=== PATIENT | male | born 1960 | race Caucasian/White ===

== ENCOUNTER → 2016-10-08 | Outpatient (CLI) | payer BC ==
[~2016-10-08] MED LIST: ASPI-484 PO; OMEP40CA6 PO; [UNRECOGNIZED DRUG - CODE] PO
--- NOTE | 2016-10-08 11:40 | DIREP ---
PROCEDURE:MRI JOINT LOWER EXTREMITY-RT W/O COMPARISON:None. INDICATIONS:LATERAL MENISCAL TEAR W/CYST TECHNIQUE:A complete multi-planar MRI was performed. FINDINGS: PATELLOFEMORAL: Tiny full-thickness cartilage fissuring with minimal subchondral edema along the inferior medial trochlear surface best seen on image 12 series 401. The remainder of the patellofemoral hyaline cartilage appears intact. The extensor mechanism and patellofemoral ligaments appear normal. CRUCIATE LIGAMENTS: Normal. COLLATERAL LIGAMENTS: Normal. MENISCI: No evidence for meniscal tearing. The lateral meniscus specifically appears normal and does not appear to communicate with a cyst adjacent to the lateral femorotibial compartment. MEDIAL COMPARTMENT: Normal hyaline cartilage. LATERAL COMPARTMENT : Small focal cartilage fissure involving the posterior weight-bearing surface of the lateral tibial plateau without adjacent subchondral edema. BONES: Normal. OTHER: There is a lobulated cystic structure lateral to the lateral femoral tibial compartment measuring 3.3 x 1.7 x 3.1 cm. This lies superficial to the fibular collateral ligament and does not appear to communicate with the lateral meniscus. This probably represents synovial or ganglion cyst. Mild prepatellar soft tissue edema. CONCLUSION: 1. Tiny full-thickness cartilage fissure along the inferior medial trochlear surface and small focal cartilage fissure involving the posterior weight-bearing surface of the lateral tibial plateau without adjacent subchondral edema. 2. Multilobulated cystic structure superficial to the fibular collateral ligament adjacent to the lateral joint compartment measuring 3.3 x 1.7 x 3.1 cm probably represents a synovial or ganglion cyst. 3. No evidence for meniscal tear. 4. Mild prepatellar soft tissue edema. Dictated by: Nino Lawrence MD on 10/08/2016 at 11:32 AM
== END | disposition home or self-care (01) ==
LOC: MRI 09:11
PROVIDERS: ATTEND Orthopaedic Surgery
DX: M94.8X6 Other specified disorders of cartilage, lower leg (principal); R60.0 Localized edema
CPT/HCPCS: 73721

== ENCOUNTER 2016-10-13 00:29 | Day surgery (SDC) | payer BC ==
[~2016-10-13] VITALS: Ht 175.3 cm; Wt 115.7 kg
[2016-10-13] VITALS (10 sets, daily range): BP systolic 109–138; BP diastolic 52–86
[2016-10-13] MEDS: LACTATED RINGERS 1,000 ML IV SCH ×2 (08:30→13:22)
[2016-10-13] MEDS ORDERED: XYLOCAINE ONE (10:30)
[2016-10-13] MEDS ORDERED: DECADRON ONE (10:30)
[2016-10-13] MEDS ORDERED: ROBINUL ONE (10:31)
[2016-10-13] MEDS ORDERED: TORADOL ONE (10:31)
[2016-10-13] MEDS ORDERED: ZEMURON IV ONE (10:31)
[2016-10-13] MEDS ORDERED: NEOSTIGMINE ONE (10:31)
[2016-10-13] MEDS ORDERED: ZOFRAN ONE (10:31)
[2016-10-13] MEDS ORDERED: VERSED ONE (10:32)
[2016-10-13] MEDS ORDERED: SUBLIMAZE ONE ×2 (10:32→12:31)
[2016-10-13] MEDS ORDERED: DIPRIVAN IV ONE (10:32)
[2016-10-13] MEDS ORDERED: SODIUM CHLORIDE IR ONE ×2 (10:52)
[2016-10-13] MEDS ORDERED: SENSORCAINE-EPI 0.25%-0.0005 ONE (10:52)
[2016-10-13] MEDS ORDERED: ZOFRAN IV PRN (13:30)
[2016-10-13] MEDS ORDERED: BENADRYL IV PRN (13:30)
[2016-10-13] MEDS ORDERED: SUBLIMAZE IV PRN (13:30)
[2016-10-13] MEDS ORDERED: VENTOLIN IH PRN (13:30)
[2016-10-13] MEDS ORDERED: TRAM50TA PO (13:39)
[2016-10-13] MEDS ORDERED: NORCO 5 MG PO ONE ×2 (13:49→14:32)
[2016-10-13] MEDS ORDERED: NORCO 5 MG PO PRN ×2 (14:00→15:00)
--- NOTE | 2016-10-13 14:03 | OPH ---
DATE OF SURGERY: 10/13/2016 PREOPERATIVE DIAGNOSES: 1. Ganglion cyst, right knee. 2. OA, right knee. POSTOPERATIVE DIAGNOSES: 1. Ganglion cyst, right knee. 2. OA, right knee involving the patellofemoral joint as well as the medial femoral condyle. 3. Plica syndrome, right knee. OPERATIVE PROCEDURES: Arthroscopy of the right knee with: 1. Plica resection. 2. Chondroplasty of the medial femoral condyle as well as the patellofemoral joint. 3. Through a separate incision is an excision of ganglion cyst, right knee. SURGEON: Conor Leonard MD ANESTHESIA: LMA. TOURNIQUET TIME: 46 minutes at 300 mmHg. DRAINS: None. BLOOD LOSS: 10 mL. DESCRIPTION OF INDICATIONS: The patient is a 56-year-old male who has had problems with the right knee. He has had problems intermittently for about the last 6 months. He has had episodes of painful locking and catching. He also complained of a painful mass about the lateral aspect of the knee as well as numbness about the lateral lower leg. He on exam has a very obvious cystic mass that is about 2 x 2 cm over the lateral joint line. There is a negative Tinel sign over the peroneal nerve. The knee itself goes through a full range of motion. His medial and lateral collateral ligaments are intact. The patient has tenderness about the medial and lateral joint line with mild crepitation. The x-rays were negative. The patient's MRI scan showed a ganglion cyst about the lateral aspect of the knee, no obvious meniscal tears, did have some arthritic changes about the patellofemoral joint. This patient was having significant pain about the cystic mass and wanted to have it excised as opposed to aspirate it. The patient was also having enough locking and catching that was painful. We wanted to proceed with arthroscopy. DESCRIPTION OF PROCEDURE: The patient was placed on the operating table in the supine position. LMA anesthetic was induced without difficulty. The patient had a well-padded tourniquet placed around the right thigh. The right lower extremity was then sterilely prepped and draped. The patient had the leg exsanguinated with an Esmarch and then the tourniquet was inflated to 300 mmHg with a good bounce. Arthroscope was introduced anterolaterally, the probe was anteromedial and the outflow cannula was superolateral. The suprapatellar pouch showed no loose bodies. He had a very large prominent plica about the medial portion of his knee. Later in the case, a shaver was introduced and the plica was resected. The articular cartilage about the patella was intact; however, he had exposed subchondral bone over an area, was running in the entire length of his patellofemoral joint with some loose articular cartilage. The shaver was introduced later in the case and any loose pieces of articular cartilage were removed back to healthy cartilage. The medial and lateral gutters were viewed, they were normal. 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 A shaver and [place] were used to perform a chondroplasty of this area. There was no exposed subchondral bone. His medial meniscus was normal to visualization as well as probing as was the medial tibial plateau. His intercondylar notch was viewed. The anterior and posterior cruciate ligaments were normal. The knee was then placed in a [id number] position. The lateral articular cartilage was normal proximally and distally. The lateral meniscus was totally within normal limits to both visualization and probing. The arthroscopic equipment was then removed from the knee. An oblique incision was made along the lateral aspect of the knee just proximal to the fibular head. Incision was taken through the skin and the subcutaneous tissues. This cyst was then identified and dissected off of the soft tissue in IT band with some Metzenbaum scissors. There was no communication with the joint itself. There was no direct involvement with the peroneal nerve. The wounds were then copiously irrigated. The subcutaneous was closed with 2-0 Monocryl in a running manner. The skin was closed with interrupted 3-0 Ethilon. The portal tracts were closed with 3-0 Ethilon in an interrupted manner. A compressive dressing was applied. The tourniquet was released. He was extubated in the operating room, sent to recovery in stable condition. Conor Leonard MD DR: LEON/ren JOB# [id number]
== END 2016-10-13 15:09 | disposition home or self-care (01) | DRG 558 ==
LOC: SURG 00:29
PROVIDERS: ATTEND Orthopaedic Surgery
DX: M67.461 Ganglion, right knee (principal); M67.51 Plica syndrome, right knee; M17.11 Unilateral primary osteoarthritis, right knee; M94.261 Chondromalacia, right knee; G47.33 Obstructive sleep apnea (adult) (pediatric); E66.9 Obesity, unspecified; Z68.37 Body mass index [BMI] 37.0-37.9, adult; K21.9 Gastro-esophageal reflux disease without esophagitis; Z98.890 Other specified postprocedural states; Z79.899 Other long term (current) drug therapy; Z72.89 Other problems related to lifestyle
CPT/HCPCS: 27328; 29875; J1100; J1885; J2250; J2405; J3010 ×2; J3490 ×2; J7030; J2710